=== PATIENT | female | born 1970 | race Caucasian/White ===

== ENCOUNTER → 2018-05-18 10:16 | Outpatient (CLI) | payer OTHER, SELFPAY ==
[2018-05-18 12:36] LABS: Urine N gonorrhoeae NOT DETECTED
[2018-05-18 12:41] LABS: Urine Chlamydia NOT DETECTED
[2018-05-21 10:13] LABS: Hepatitis A Antibody IgM NONREACTIVE; Hepatitis Acute Panel Interp 0.01; Hepatitis B Core Antibody IgM NONREACTIVE; Hepatitis B Surface Antigen NONREACTIVE; Hepatitis C Antibody NONREACTIVE
[2018-05-24 15:03] LABS: Rapid Plasma Reagin NON REACTIVE
== END ==
PROVIDERS: PCP Physician Assistant; Visit Provider Physician Assistant
DX: R30.0 Dysuria (principal); N39.0 Urinary tract infection, site not specified
CPT/HCPCS: 36415; 80074; 86592; 87086; 87491; 87591

== ENCOUNTER 2021-07-07 16:24 | Emergency (ER) | payer OTHER, SELFPAY ==
[2021-07-07 16:25] VITALS: BP 164/92; PULSE 67; RESP 17; TEMP 36.7; O2SAT 98; BMI 18.2
[2021-07-07 18:13] VITALS: BP 139/72; PULSE 77; RESP 16; O2SAT 99
--- NOTE | 2021-07-07 18:19 | ED.SKABFB ---
HPI - Skin/Abscess/Foreign Bdy <JESUS Lr - Last Filed: 07/07/21 18:30> General Chief complaint: Skin/Abscess/Foreign Body Stated complaint: found lump in left leg vein Time Seen by Provider: 07/07/21 17:31 Source: patient Mode of arrival: Ambulatory History of Present Illness HPI narrative: 50-year-old female presents the ED for a lump behind her left knee that her daughter noticed 4 days ago. She denies any color change, reports that it has not changed, she denies that there is any surrounding redness, she denies fever, swelling, or pain. She denies any recent trauma or any known reason for this, she denies any bruising or surrounding tenderness. Related Data Home Medications Medication Instructions Recorded Confirmed etonogestrel 68 mg subdermal SUBDERMAL each 05/18/18 12/08/20 implant (Nexplanon) Allergies Allergy/AdvReac Type Severity Reaction Status Date / Time No Known Drug Allergies Allergy Unverified 12/08/20 10:07 Review of Systems <JESUS Lr - Last Filed: 07/07/21 18:30> Review of Systems Narrative: General: denies fever, chills, denies history of blood clots Head/Neck: denies headache, neck pain Eyes: denies visual changes, eye pain Cardio: denies chest pain, palpitations Respiratory: denies shortness of breath, cough GI: denies abdominal pain, nausea, vomiting, or diarrhea : denies dysuria, hematuria MSK: denies joint pain, muscle weakness, pain or changes to this bump behind her left knee, tenderness to her knee joint, or any swelling, denies any calf pain Skin: denies rash, itching Neuro: denies numbness, tingling Patient History <JESUS Lr - Last Filed: 07/07/21 18:30> Medical History Degenerative disc disease Hemorrhoid (~2004) Herpes (~2003) Kidney stones (~2002) Mumps (~1978) Shoulder pain (~2015) Vertigo (~2004) Surgical History History of section (~02/17/06) Family History Father History of heart attack Stroke Social History Smoking Status: Current every day smoker alcohol intake: never Smoking Status: Current every day smoker alcohol intake frequency: other Substance Use Type: marijuana Exam <JESUS Lr - Last Filed: 07/07/21 18:30> Narrative Exam Narrative: Independently reviewed vitals signs and nursing notes. General: Awake, alert, nontoxic, no cardiorespiratory distress Head/Neck: Atraumatic, neck full range of motion Eyes: EOMI, conjunctiva normal Nose: nares patent, no rhinorrhea Mouth/Throat: moist mucus membranes Cardio: Regular rate and rhythm, no peripheral edema Respiratory: respirations unlabored without wheezing, stridor, or rales. No retractions. GI: Abdomen soft, nontender MSK: Moves all extremities, neurovascularly intact Skin: Normal capillary refill, no rash Neuro: Normal speech and cognition, normal gait Initial Vital Signs Initial Vital Signs: Vital Signs Temperature 98.1 F 07/07/21 16:25 Pulse Rate 67 07/07/21 16:25 Respiratory Rate 17 07/07/21 16:25 Blood Pressure 164/92 H 07/07/21 16:25 Pulse Oximetry 98 07/07/21 16:25 <Cassie Boyer DO - Last Filed: 07/07/21 20:01> Initial Vital Signs Initial Vital Signs: Vital Signs Temperature 98.1 F 07/07/21 16:25 Pulse Rate 67 07/07/21 16:25 Respiratory Rate 17 07/07/21 16:25 Blood Pressure 164/92 H 07/07/21 16:25 Pulse Oximetry 98 07/07/21 16:25 Course <JESUS Lr - Last Filed: 07/07/21 18:30> Vital Signs Vital signs: Vital Signs - 8 hr 07/07/21 16:25 07/07/21 18:13 Temperature 98.1 F Pulse Rate 67 77 Respiratory Rate 17 16 Blood Pressure 164/92 H 139/72 Pulse Oximetry 98 99 <Cassie Boyer DO - Last Filed: 07/07/21 20:01> Vital Signs Vital signs: Vital Signs - 8 hr 07/07/21 16:25 07/07/21 18:13 Temperature 98.1 F Pulse Rate 67 77 Respiratory Rate 17 16 Blood Pressure 164/92 H 139/72 Pulse Oximetry 98 99 MDM - Skin/Abscess/Foreign Bdy <Anna Tineo FLIGHT DIRECTOR - Last Filed: 07/07/21 18:30> MDM Narrative Medical decision making narrative: 50-year-old female with no pertinent medical history presents to the ED for lump behind left knee. This is most likely an epidermoid cyst, it is superficial, mobile, not fluctuant, no surrounding erythema or edema, it is firm, and does not appear infected. Differential includes Dawson's cyst, other dermoid cyst, lipoma, it does not appear to be vascular, it is skin colored. Because there are no signs of infection, and it is nontender and benign, the patient is recommended to follow up with her PCP if it becomes problematic for her. She was educated on what to do if it ruptures, and that most likely it will resolve on its own but also that it will likely recur. Patient is appropriate and amenable to discharge home. Vital signs are stable on repeat examination is unremarkable. Patient has been informed of results. Patient has been given strict return to ER precautions for any new or worsening symptoms. Patient understands to follow up closely with outpatient providers as instructed. Patient understands plan and agrees to discharge home. All questions and concerns answered at this time. Discharge Plan Departure Patient Disposition: Home Clinical Impression: Epidermoid cyst Instructions: DI for Epidermal Cyst Activity Restrictions/Additional Instructions: *You have been diagnosed with an epidermoid cyst. Because not infected right, it may resolve spontaneously without any treatment, but as a warning they tend to recur. Sometimes these rupture and become inflamed. If this happens and it is very tender, get in with your PCP and they can do an injection of a steroid which will improve the surrounding inflammation. If you can not live with it you may get in with dermatology or even see your PCP and they can drain it. Because it is not infected there is no indication to drain it today. *What to do: *Please continue to take your regular medications as directed. [ ] New medication prescriptions sent to your pharmacy: [ ] [ ] New medication written as a paper prescription [x ] No new medications given *Please follow up with your primary care provider in 2-3 days, call for an appointment. Let them know you were seen in the Emergency Department and that we ask that you be seen in follow up. We will electronically transmit a record of today's note if your PCP is in our system *If you do not have a primary care provider please contact the [facility] Resource line at [phone]. They will ask some questions about your medical history and help get you set up with a doctor in the community. *Return to Emergency Department if you should have any new, worsening or concerning symptoms, such as [fever greater than 101F, chills, worsening pain, persistent vomiting or other bothersome symptoms] Prescriptions: No Action etonogestrel [Nexplanon] 68 mg implant Subdermal RF: 0 Referrals: Lauren Bautista ARNP [Primary Care Provider] - <Cassie Boyer DO - Last Filed: 07/07/21 20:01> Cosign ED Attending Alexus Attestation: I was immediately available in the department for consultation. Documentation has been reviewed. I agree with assessment and plan.
== END 2021-07-07 18:13 | disposition home or self-care (01) ==
PROVIDERS: Emergency Provider Nurse Practitioner Critical Care Medicine; PCP Registered Nurse
DX: L72.0 Epidermal cyst (principal)
CPT/HCPCS: 99281

== ENCOUNTER → 2021-07-30 13:06 | Outpatient (CLI) | payer OTHER, SELFPAY ==
--- NOTE | 2021-07-30 13:09 | DI.US.S_ITS ---
PROCEDURE: US PERIPH VENOUS LOW EXTREM LT INDICATIONS: SWELLING AND PAIN TECHNIQUE: Real-time imaging, as well as color and pulse Doppler interrogation, were performed of the lower extremity deep veins from the inguinal ligament to the popliteal fossa. COMPARISON: None. FINDINGS: The common femoral, femoral and popliteal veins are normally compressible, and free of intraluminal thrombus. Color and pulse Doppler demonstrate normal phasic intraluminal flow. There is normal augmentation response to distal compression maneuver. Superficial thrombus can be seen, however, within the posterior medial knee, extending to the mid medial calf. IMPRESSION: Negative for deep venous thrombosis. Superficial venous thrombosis can be seen distally. Dictated by: Marvin Krause M.D. on 07/30/2021 at 13:05 Approved by: Marvin Krause M.D. on 07/30/2021 at 13:06
== END ==
PROVIDERS: PCP Registered Nurse; Referring Provider Registered Nurse; Visit Provider Registered Nurse
DX: M79.89 Other specified soft tissue disorders (principal)
CPT/HCPCS: 93971

== ENCOUNTER → 2021-09-08 10:40 | Outpatient (CLI) | payer OTHER, SELFPAY ==
--- NOTE | 2021-09-08 10:41 | DI.US.S_ITS ---
PROCEDURE: US [facility] VENOUS LOW EXTREM LT INDICATIONS: INCREASING PAIN OF SUPERFICIAL THROMBOSED VEIN TECHNIQUE: Real-time imaging, as well as color and pulse Doppler interrogation, were performed of the lower extremity deep veins from the inguinal ligament to the popliteal fossa. COMPARISON: [facility], [facility] VENOUS LOW EXTREM LT, 07/30/2021, 13:30. FINDINGS: The common femoral, femoral and popliteal veins are normally compressible, and free of intraluminal thrombus. Color and pulse Doppler demonstrate normal phasic intraluminal flow. There is normal augmentation response to distal compression maneuver. Superficial thrombophlebitis again visualized within the medial left knee soft tissues. IMPRESSION: 1. No deep venous thrombosis identified within the left lower extremity. 2. Superficial thrombophlebitis again seen within the medial left knee soft tissues which appears similar to prior examination. Dictated by: Rohith Baum [facility] Interpreted: Maury Elizabeth MD on 09/08/2021 at 11:47 Transcribed by: NOEL on 09/08/2021 at 11:48 Approved by: Maury Elizabeth M.D. on 09/08/2021 at 13:50
== END ==
PROVIDERS: PCP Registered Nurse; Referring Provider Surgery; Visit Provider Surgery
DX: I80.02 Phlebitis and thrombophlebitis of superficial vessels of left lower extremity (principal)
CPT/HCPCS: 93971

== ENCOUNTER → 2021-09-21 09:03 | Outpatient (CLI) | payer OTHER, SELFPAY ==
--- NOTE | 2021-09-21 09:05 | DI.CT.S_ITS ---
PROCEDURE: CT ANGIO CHEST INDICATIONS: dyspnea TECHNIQUE: After the administration of intravenous contrast, 2 mm thick sections acquired from the pulmonary apices to the posterior costophrenic angles. 3-dimensional maximum intensity projection (MIP) coronal and sagittal reformats were then acquired through the thorax. For radiation dose reduction, the following was used: automated exposure control, adjustment of mA and/or kV according to patient size. COMPARISON: None. FINDINGS: Image quality: Excellent. Pulmonary arteries: Pulmonary arteries are normal in size, and demonstrate no intraluminal filling defects to suggest central pulmonary embolism. Lungs and pleura: Lungs are clear. No pleural effusions or pneumothorax. Central and peripheral airways are patent. Mediastinum: Heart size is normal, without pericardial effusion. No mediastinal or hilar adenopathy. Thoracic aorta is normal in caliber and enhancement. Esophagus is normal in caliber, without hiatal hernia. Bones and chest wall: No suspicious bony lesions. Ribs and thoracic spine appear intact throughout. Thyroid gland is normal. No axillary or supraclavicular adenopathy. Bilateral breast implants are intact. A Bochdalek hernia is present on right. Pectus excavatum is noted with a Alvina index of 4.5. Abdomen: Visualized upper abdominal solid organs appear normal in the early arterial phase of enhancement. IMPRESSION: 1. Normal CTA chest. 2. No pulmonary embolism. 3. No acute pulmonary abnormality. 4. Pectus excavatum. Dictated by: Avery Rodas M.D. on 09/21/2021 at 14:37 Approved by: Avery Rodas M.D. on 09/21/2021 at 14:45
== END ==
PROVIDERS: PCP Registered Nurse; Referring Provider Surgery; Visit Provider Surgery
DX: I82.812 Embolism and thrombosis of superficial veins of left lower extremity (principal); R06.00 Dyspnea, unspecified
CPT/HCPCS: 71275

== ENCOUNTER 2024-08-03 09:47 | Emergency (ER) | payer OTHER, SELFPAY ==
[2024-08-03] VITALS (9 sets, daily range): BP systolic 165–200; BP diastolic 90–112; PULSE 65–83; RESP 17–20; TEMP 37; O2SAT 97–100; BMI 17.3
--- NOTE | 2024-08-03 10:16 | ED_ITS ---
HPI - Extremity Problem General Chief complaint: Extremity Problem,Nontraumatic Stated complaint: blood clots in legs moving up Time Seen by Provider: 08/03/24 10:01 Source: patient Mode of arrival: Family Vehicle History of Present Illness HPI Narrative: Patient is a 54-year-old female history of smoking currently has Nexplanon implant, recent estrogen patch which she is now taken off, history of superficial venous thrombosis presenting today with bilateral leg pain. She does not have significant swelling she is quite worried that she has clots back. She has been taking aspirin. She also is having some chest pain shortness of breath but feels like it due to anxiety and stress. She is very worried about this clot. Dad had multiple strokes in the age of 50 and 60 and of [place] in his 70s. Related Data Home Medications Medication Instructions Recorded Confirmed etonogestrel 68 mg subdermal subdermal 05/18/18 09/16/21 implant (Nexplanon) aspirin 325 mg tablet 325 mg PO DAILY 08/10/21 09/16/21 Allergies Allergy/AdvReac Type Severity Reaction Status Date / Time No Known Drug Allergies Allergy Verified 08/03/24 10:04 Patient History Medical History Epidermoid cyst Cyst Swelling of left extremity Degenerative disc disease Shoulder pain (~2015) Mumps (~1978) Vertigo (~2004) Herpes (~2003) Kidney stones (~2002) Hemorrhoid (~2004) Surgical History History of section (~02/17/06) Family History Father History of heart attack Stroke Social History Smoking Status: Current every day smoker alcohol intake: never Smoking Status: Current every day smoker tobacco type: cigarettes alcohol intake frequency: holidays/special occasions only Substance Use Type: marijuana Exam Initial Vital Signs Initial Vital Signs: Vital Signs Pulse Rate 80 08/03/24 09:53 Blood Pressure 173/112 H 08/03/24 09:53 Pulse Oximetry 100 08/03/24 09:53 GENERAL: Alert anxious 54-year-old female and in [no acute] distress. HEENT: Head atraumatic,EOMI, pupils reactive, face symmetric, [moist] mucous membranes CARDIOVASCULAR: Regular rate and rhythm without murmurs, rubs or gallops. RESPIRATORY: Breath sounds equal bilaterally, no wheezes rales or rhonchi. ABDOMEN: Soft, nontender. Normoactive bowel sounds all 4 quadrants. No guarding or rebound. EXTREMITIES: Normal range of motion, no clubbing or edema. Neurovascularly intact Lower extremities no significant erythema swelling no obvious varicose veins significantly tender behind her knees she is complaining of more pain and her left leg than her right NEUROLOGICAL: Alert and oriented x4.Normal gait and speech. Cranial nerves II through XII grossly intact. SKIN: Warm, dry, no laceration, no petechiae, no rashes or lesions. Course Orders Ordered: ED Orders 08/03/24 10:15 US periph venous low extrem bi Stat XR chest 1V Stat EKG-12 Lead Stat 08/03/24 10:30 Complete Blood Count AUTO DIFF Stat Comprehensive Metabolic Panel Stat D Dimer Stat Lipase Stat Troponin & CK Cardiac Panel Stat Vital Signs Vital signs: Vital Signs - 8 hr 08/03/24 09:53 08/03/24 09:53 08/03/24 09:54 Temperature Pulse Rate 80 Respiratory Rate Blood Pressure 173/112 H Pulse Oximetry 100 99 Oxygen Delivery Method 08/03/24 09:55 08/03/24 10:00 08/03/24 10:22 Temperature 98.6 F Pulse Rate 83 72 Respiratory Rate 17 Blood Pressure 200/97 H 200/97 H Pulse Oximetry 99 98 Oxygen Delivery Method Room Air 08/03/24 10:23 08/03/24 10:23 08/03/24 10:30 Temperature Pulse Rate 69 66 Respiratory Rate 20 Blood Pressure 165/98 H Pulse Oximetry 100 100 Oxygen Delivery Method 08/03/24 11:00 08/03/24 11:00 08/03/24 12:00 Temperature Pulse Rate 66 65 Respiratory Rate 18 18 Blood Pressure 170/94 H 170/90 H Pulse Oximetry 97 99 Oxygen Delivery Method Room Air Room Air MDM - Extremity (Nontraumatic) Lab Data 08/03/24 10:30 08/03/24 10:30 Labs: Lab Results 08/03/24 Range/Units 10:30 WBC 7.1 (4.5-11.0) X10^3/uL RBC 4.64 (4.0-5.2) X10^6/uL Hgb 15.2 (12.0-16.0) g/dL Hct 45.3 (36-46) % MCV 97.5 (80-100) fL MCH 32.8 (26-34) PG MCHC 33.6 (30-36) % RDW 12.9 (11.6-14.8) % Plt Count 185 (150-400) X10^3/uL Neut % (Auto) 66.5 (50-75) % Lymph % (Auto) 24.2 L (25-40) % Esmeralda % (Auto) 6.4 (3-14) % Eos % (Auto) 1.5 L (2-4) % Baso % (Auto) 1.4 (0-2) % Neut # (Auto) 4700 (2844-1100) /uL Lymph # (Auto) 1700 (5529-8730) /uL Esmeralda # (Auto) 500 (0-900) /uL Eos # (Auto) 100 (0-450) /uL Baso # (Auto) 100 (0-100) /uL D-Dimer 641 H (<500) ng/ml Sodium 142 (137-145) mmol/L Potassium 3.6 (3.4-5.1) mmol/L Chloride 109 H (98-107) mmol/L Carbon Dioxide 27 (22-32) mmol/L BUN 14 (7-17) mg/dL Creatinine 0.80 (0.52-1.04) mg/dL Estimated GFR > 60 (>60) mL/min BUN/Creatinine Ratio 17.5 (6-22) Glucose 81 (70-100) mg/dL Calcium 9.4 (8.4-10.2) mg/dL Total Bilirubin 0.7 (0.2-1.3) mg/dL AST 26 (14-36) IU/L ALT 15 (<35) IU/L Alkaline Phosphatase 47 (38-126) U/L Total Creatine Kinase 104 (30-135) U/L Troponin I < 0.012 (0.01-0.034) ng/mL Total Protein 7.0 (6.3-8.2) g/dL Albumin 4.2 (3.5-5.0) g/dL Globulin 2.8 (1.7-4.1) g/dL Albumin/Globulin Ratio 1.5 (1.0-2.8) Lipase 217 (23-300) U/L Imaging Data Chest x-ray: Radiologist's Impression: PROCEDURE: XR CHEST 1V INDICATIONS: chest pain TECHNIQUE: One view of the chest was acquired. COMPARISON: [facility], CT, CT ANGIO CHEST, 09/21/2021, 9:37. FINDINGS: Surgical changes and devices: Mammoplasty implants are incidentally noted. Lungs and pleura: Lungs are clear. No pleural effusions or pneumothorax. Mediastinum: Mediastinal contours appear normal. Heart size is normal. Bones and chest wall: No suspicious bony lesions. Overlying soft tissues appear unremarkable. IMPRESSION: No acute cardiopulmonary abnormality is seen. Dictated by: Marvin Krause M.D. on 08/03/2024 at 9:41 US - DVT: Radiologist's Impression: PROCEDURE: US PERIPH VENOUS LOW EXTREM BI INDICATIONS: hx of superficial thrombosis TECHNIQUE: Real-time imaging, as well as color and pulse Doppler interrogation, were performed of the deep veins of both legs from the inguinal ligament to the popliteal fossa, with documentation of the visualized calf veins. COMPARISON: None. FINDINGS: Right: The common femoral, femoral, popliteal, and the visualized calf veins are normally compressible, and free of intraluminal thrombus. Color and pulse Doppler demonstrate normal phasic intravascular flow. There is normal augmentation response to distal compression maneuver. Left: The common femoral, femoral, popliteal, and the visualized calf veins are normally compressible, and free of intraluminal thrombus. Color and pulse Doppler demonstrate normal phasic intravascular flow. There is normal augmentation response to distal compression maneuver. Eighty fluid collection is seen in the right popliteal fossa consistent with a popliteal cyst. This measures 4.1 x 0.7 x 2.1 cm. IMPRESSION: 1. No findings of deep venous thrombosis in either lower extremity. 2. Right medial popliteal Dwason cyst. Approved by: Brent Beasley M.D. on 08/03/2024 at 11:46 ECG Data Attestation EKG: I personally reviewed and interpreted this ECG as follows: Interpretation: Normal sinus rhythm rate 66 AL interval 134 QRS [address] changes no T- wave inversion MDM Narrative Medical decision making narrative: MDM CC: Leg pain chest pain Complicating co-morbidities: Smoking hormone use family history of acute coronary syndrome Medical records reviewed: Last no is from 08/10/2021 by general surgery follow- up for lower extremity superficial venous thrombosis where she noticed a firm lump posterior medial aspect of her left knee. By 09/16/2021 she had a persistent superficial venous thrombosis involving proportion of saphenous vein. It also looks like she had a CTA of the chest September 21 which did not show any pulmonary Differential considered: DVT acute coronary syndrome pulmonary embolism Exam documented above, pertinent findings include: Mild pain left leg greater than right leg inner thigh no significant swelling Lab Test results independently reviewed as above. Pertinent findings: D-dimer 641 No leukocytosis no anemia, WBC is 7.5 hemoglobin 15.2 hematocrit 45.3 CMP no electrolyte abnormality creatinine 0.8 Troponin negative Independently reviewed EKG as above no ischemia Imaging studies independently reviewed: No acute cardiopulmonary process Ultrasound no DVT Treatments: None Discussion: Patient 54-year-old female history of smoking hormone use priors superficial DVT presenting today with bilateral leg pain chest pain shortness of breath. She has an under quite a bit of stress and anxiety. Think this may be causing some of her chest pain shortness of breath. She really isn't having any chest here. EKGs overall reassuring and has she has a negative troponin D-dimer today is under 1000 and ultrasound is negative for DVT and superficial thrombosis. No suspicion for pulmonary embolism or underlying DVT. My discussion with her about stopping smoking. She does need a primary care provider. Discharge Plan Departure Patient Disposition: Home Clinical Impression: Dawson cyst Instructions: DI for Dawson Cyst Activity Restrictions/Additional Instructions: *You have been diagnosed with Dawson's cyst right side *What to do: At this time you have no evidence of blood clot. Do recommend that you stop smoking. Please talk with your primary care provider about help with this You may at some point require cardiac testing such as stress test and/or echocardiogram but not indicated today *Continue to take medications as directed Continue aspirin 81 mg daily *Follow up with your primary care provider in 2-3 days or call [phone] *Return to ER if you should have increasing leg pain chest pain shortness of breath or any new, worsening or concerning symptoms Prescriptions: No Action etonogestrel [Nexplanon] 68 mg implant Subdermal aspirin 325 mg tablet 325 mg PO DAILY Referrals: Jayla Contreras MD [Primary Care Provider] - Stand Alone Forms: Patient Portal/API/Survey
--- NOTE | 2024-08-03 10:35 | EKG_ITS ---
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
[2024-08-03 10:45] LABS: Add Manual Diff / Slide Review NO; Basophils Absolute Auto 100 /uL (0-100); Basophils Percent Auto 1.4 % (0-2); Eosinophils Absolute Auto 100 /uL (0-450); Eosinophils Percent Auto 1.5 % (2-4); Hematocrit 45.3 % (36-46); Hemoglobin 15.2 g/dL (12.0-16.0); Lymphocytes Absolute Auto 1700 /uL (1100-4500); Lymphocytes Percent Auto 24.2 % (25-40); Mean Corpuscular HGB Conc 33.6 % (30-36); Mean Corpuscular Hemoglobin 32.8 PG (26-34); Mean Corpuscular Volume 97.5 fL (80-100); Monocytes Absolute Auto 500 /uL (0-900); Monocytes Percent Auto 6.4 % (3-14); Neutrophils Absolute Auto 4700 /uL (1500-7000); Neutrophils Percent Auto 66.5 % (50-75); Platelet Count 185 X10^3/uL (150-400); Red Blood Cell Count 4.64 X10^6/uL (4.0-5.2); Red Cell Distribution Width 12.9 % (11.6-14.8); White Blood Cell Count 7.1 X10^3/uL (4.5-11.0)
[2024-08-03 10:53] LABS: D Dimer 641 ng/ml (<500)
[2024-08-03 10:56] LABS: Alanine Aminotransferase 15 IU/L (<35); Albumin 4.2 g/dL (3.5-5.0); Albumin Globulin Ratio 1.5 (1.0-2.8); Alkaline Phosphatase 47 U/L (38-126); Aspartate Aminotransferase 26 IU/L (14-36); BUN Creatinine Ratio 17.5 (6-22); Bilirubin Total 0.7 mg/dL (0.2-1.3); Blood Urea Nitrogen 14 mg/dL (7-17); Calcium 9.4 mg/dL (8.4-10.2); Carbon Dioxide 27 mmol/L (22-32); Chloride 109 mmol/L (98-107); Creatine Kinase 104 U/L (30-135); Estimated Glomerular Filt Rate > 60 mL/min (>60); Globulin 2.8 g/dL (1.7-4.1); Glucose 81 mg/dL (70-100); HEMOLYSIS < 15 (0-50); Lipase 217 U/L (23-300); Potassium 3.6 mmol/L (3.4-5.1); Sodium 142 mmol/L (137-145)
[2024-08-03 11:07] LABS: Troponin I < 0.012 ng/mL (0.01-0.034)
== END 2024-08-03 12:20 | disposition home or self-care (01) ==
PROVIDERS: Emergency Provider Emergency Medicine; PCP Internal Medicine
DX: M71.21 Synovial cyst of popliteal space [Baker], right knee (principal); R07.9 Chest pain, unspecified; R06.02 Shortness of breath; I45.2 Bifascicular block
CPT/HCPCS: 36415; 71045; 80053; 82550; 83690; 84484; 85025; 85379; 93005; 93970; 99284